=== PATIENT | male | born 1955 | race Caucasian/White ===

== ENCOUNTER 2017-08-14 16:11 | Inpatient (IN) | payer OTHER, MEDICAID ==
[~2017-08-14] VITALS: Ht 170.2 cm; Wt 74.0 kg
--- NOTE | 2017-08-14 16:30 | NUR ---
PT WAS BROUGHT IN TO ED BY CAREGIVER W/CC OF FEVER AND COUGH. PT'S CAREGIVER STS PT IS NONVERBAL BUT HAS APPEARED SOB AND UNCOMFORTABLE TODAY. WHEN ASKED IF HE FEELS PAIN, PT POINTS TO EPIGASTRIC REGION OF ABD. NO ABD DISTENTION NOTED. LUNG BELLO CLEAR UPON AUSCULTATION. COMFORT MEASURES IMPLEMENTED. CALL LIGHT W/IN REACH. PT AWAITING MSE. WILL CONTINUE TO MONITOR.
--- NOTE | 2017-08-14 16:50 | NUR ---
DR. HUDSON AT BEDSIDE FOR MSE.
[2017-08-14 17:22] LABS: CARBON DIOXIDE 25.2 mmol/L (21-32); CREATININE SERUM 1.4 mg/dL (0.7-1.3); POTASSIUM SERUM 4.1 mmol/L (3.5-5.1)
--- NOTE | 2017-08-14 17:22 | NUR ---
MEDICATED ORDERED. PLEASE SEE EMR.
[2017-08-14 17:41] LABS: PLATELET COUNT 194 x10^3mcL (130-400)
[2017-08-14 17:49] LABS: ALBUMIN 3.8 g/dL (3.4-5.0); BILIRUBIN TOTAL 0.8 mg/dL (0.20-1.00); TOTAL PROTEIN, SERUM 7.9 g/dL (6.4-8.2)
[2017-08-14 17:51] LABS: BASOPHIL % 0 % (0-2); RED CELL DISTRIBUTION WIDTH 15.7 % (11.5-14.5)
--- NOTE | 2017-08-14 17:55 | NUR ---
BREATHING TX IN PROGRESS.
[2017-08-14] MEDS ORDERED: MASON NATURAL1000 IU (18:29)
[2017-08-14] MEDS ORDERED: PHOSLO667 MG (18:29)
[2017-08-14] MEDS ORDERED: METROCREAM0.75% (18:30)
[2017-08-14] MEDS ORDERED: COLACE100 MG (18:30)
[2017-08-14] MEDS ORDERED: THE MEDICINE S300 MG (18:30)
--- NOTE | 2017-08-14 18:31 | NUR ---
URINAL AT BEDSIDE. PT UNABLE TO URINATE AT THIS TIME. AWARE OF URINE SPECIMEN NEED. STORE WAREHOUSE ASSOCIATE AT BEDSIDE.
[2017-08-14 18:36] LABS: rbc morphology (normal/abnorm) ABNORMAL (NORMAL)
--- NOTE | 2017-08-14 18:44 | NUR ---
REPORT GIVEN TO LARRY HANNAH FOR CONTINUATION OF CARE PRIMARY RN.
--- NOTE | 2017-08-14 18:48 | NUR ---
PT TRANSFERED VIA GURNEY ACCOMPANIED BY NURSE AND EMT. HAND WEAVER ATTACHED. VSS. RESPS E/U. NO S/S OF DISTRESS NOTED.
--- NOTE | 2017-08-14 19:00 | NUR ---
RECEIVED PT FROM ED [facility]IA [facility], CAME IN DUE TO FEVER AND SHAKINESS. PT IS ALERT, AWAKE AND ORIENTED TO PERSON ONLY. ABLE TO FOLLOW SIMPLE COMMANDS. TACHYPNEA NOTED, LUNG SOUNDS CTA. W/ NON-PRODUCTIVE COUGH. DENIES CHEST PAIN/PRESSURE, HR AT 103 ON THE MONITOR, SINUS TACHYCARDIA W/ OCC. PVC'S. C/O ABDOMINAL PAIN, PT IS UNABLE TO GIVE PAIN SCALE AND DESCRIPTION OF THE PAIN. W/ PIN-POINT REDNESS ON BUE. IV SITE PATENT AND INTACT. SZHF=114.5, COOLING MEASURES INITIATED. SIDE RAILS UPX2. CALL LIGHT ON REACH. HOB ELEVATED AT 30 DEG. BED ALARM ON. CAREGIVER AT BEDSIDE. ENDORSED TO PRIMARY NURSE JAZMÍN.
[2017-08-14 19:07] LABS: MAGNESIUM 2.2 mg/dL (1.8-2.4); PHOSPHOROUS 2.9 mg/dL (2.5-4.9)
[2017-08-14 19:10] VITALS: BP 98/63
[2017-08-14 19:14] VITALS: Ht 170.2 cm; Wt 74.0 kg
[2017-08-14 19:18] LABS: T3 TOTAL 0.81 ng/mL
[2017-08-14 19:19] LABS: FREE T4 0.87 ng/dL (0.76-1.46); FREE THYROXINE INDEX 2.2 ug/dL (1.4-4.5); T4(THYROXINE) 6.8 ug/dL (4.7-13.3)
[2017-08-14 20:58] VITALS: BP 95/52
--- NOTE | 2017-08-14 21:10 | NUR ---
IN BED, A/O X1, ABLE TO FOLLOW SOME COMMANDS. RESP. EVEN AND UNLABORED. ON ROOM AIR , NO DISTRESS NOTED. ON TELE #18, MONITOR SHOWS SR WITH OCCA. PVCS, NO EVIDENCE OF ANY DISCOMFORT NOTED. STARTED ON IVF, NS AT 100ML/HR, INFUSING VIA LAC, SITE CLEAR. KEPT COMFORTABLE. ABLE TO MOVE ALL EXTS. CALL LIGHT WITHIN REACH. WILL CONTINUE TO MONITOR.
--- NOTE | 2017-08-14 21:15 | NUR ---
TEMP. RECHECK SHOWS 98.0.NO EVIDENCE OF ANY DISCOMFORT NOTED AT THIS TIME.
[2017-08-14 21:45] VITALS: BP 95/52
[2017-08-14 23:59] LABS: RED BLOOD CELLS 5.73 M/mm3 (4.52-5.90)
[2017-08-15 00:12] LABS: TOTAL IRON BINDING CAPACITY 263 ug/dL (250-450)
[2017-08-15 00:18] LABS: CHOLESTEROL/HDL RATIO 4.1; IRON 11 ug/dL (65-170)
--- NOTE | 2017-08-15 00:48 | NUR ---
CALM AT THIS TIME. NO COMPLAINTS NOTED. WILL CONTINUE TO MONITOR.
[2017-08-15 04:50] VITALS: BP 104/60
[2017-08-15 06:17] LABS: CALCIUM 8.6 mg/dL (8.5-10.1); CARBON DIOXIDE 23.1 mmol/L (21-32); CHLORIDE SERUM 105 mmol/L (98-107); CREATININE SERUM 1.1 mg/dL (0.7-1.3); GFR1 > 60 mL/min; GLUCOSE SERUM 161 mg/dL (74-106); POTASSIUM SERUM 3.9 mmol/L (3.5-5.1); SODIUM SERUM 139 mmol/L (136-145)
[2017-08-15 06:19] LABS: PLATELET COUNT 180 x10^3mcL (130-400)
[2017-08-15 06:26] LABS: BASOPHIL % 0 % (0-2)
--- NOTE | 2017-08-15 06:34 | NUR ---
IV SITE LEAKING, DISCONT. NEW IV SITE RESTARTED ON LFA WITH #22G ANGIO.IVF INFUSING WELL AT THIS TIME. DUE MEDS GIVEN ORDERED, ISAAC. WELL. AFEBRILE AND VITAL SIGNS STABLE. RESP. EVEN AND UNLABORED. [address] VIA OXYMIZER, ISAAC. WELL. NO DISTRESS NOTED. WILL ENDORSE TO INCOMING NURSE.
[2017-08-15 07:12] LABS: UA SPECIFIC GRAVITY 1.025 (1.005-1.035); microscopic required? YES; urine erythrocyte 1+ (NEGATIVE)
--- NOTE | 2017-08-15 07:30 | NUR ---
RECEIVED PATIENT IN BED, AWAKE ALERT ORIENTED X 1. O2 ON VIA OXYMIZER AT 6L. NO ACUTE DISTRESS NOTED. OCCAS NON PRODUCTIVE COUGH NOTED. IVF INFUSING WELL TO LEFT F/A. SITE PATENT. SCATTERED PIN POINT REDMESS NOTED KELLY HARVEY. AMBULATORY WITH ASSIST. NO ACUTE DISTRESS NOTED. WILL CONTINUE TO MONITOR. TELE 18 NSR.
--- NOTE | 2017-08-15 08:00 | NUR ---
DR THOMPSON AND MEDICAL TEAM INTO SEE PATIENT AND DISCUSS PLAN OF CARE.
[2017-08-15 09:16] LABS: AMPHETAMINE QUAL UR NONE DETECTED (NEG <=1000)
[2017-08-15 10:23] VITALS: BP 106/62
--- NOTE | 2017-08-15 10:30 | NUR ---
DR MOORE NOTIFED BY ZAIDA JUAREZ OF PATIENT'S LACTIC ACID OF 3.2.
[2017-08-15 13:38] VITALS: BP 119/70
--- NOTE | 2017-08-15 14:12 | NUR ---
DR. MOORE IS PAGEGATED TO MADE AWARE THAT REPEAT LACTIC ACID=3.2. PRIMARY NURSE JATINDER MADE AWARE.
--- NOTE | 2017-08-15 16:43 | NUR ---
I HAVE REVIEWED THE DATA COLLECTION BY DEDE (NAME): JATINDER DAVIS ENTERED ON (DATE/TIME): 08/15/17 I CONCUR WITH THE DATA AND ANY EXCEPTIONS OR COMMENTS ARE LISTED BELOW:
--- NOTE | 2017-08-15 17:09 | NUR ---
RECEIVED LAB RESULTS OF MRSA + NARES. DR GARCIA NOTIFIED.
[2017-08-15 18:02] VITALS: BP 119/71
--- NOTE | 2017-08-15 18:14 | NUR ---
PATIENT TO BE MOVED TO ROOM 248A FOR ISOLATION D/T + MRSA NARES, AND WILL BE CLOSER TO NURSES STATION. IVF INFUSING WELL . PATIENT TOLERATED PUREE DIET WELL, FEEDER. NO ACUTE DISTRESS NOTED . WILL CONTINUE TO MONITOR.
--- NOTE | 2017-08-15 20:29 | NUR ---
PT O2 SAT 90%, NO RESPIRATORY DISTRESS NOTED. RT NOTIFIED. WILL CONTINUE TO MONITOR.
--- NOTE | 2017-08-15 20:34 | NUR ---
PT CURRENTLY RESTING IN BED, NO ACUTE DISTRESS. A/O X1, HX OF MR, COGNITIVE IMPAIRMENT, IMPULSE CONTROL DISORDER. TELE #18 SHOWING SINUS TACHYCARDIA, DENIES CHEST PAIN. PULSE PALPABLE IN ALL EXTREMITIES, NO EDEMA NOTED. LUNG SOUNDS DIMINISHED IN BILATERAL BASES, NO RESPIRATORY DISTRESS NOTED, O2 SAT 90%, RT NOTIFIED. BOWEL SOUNDS ACTIVE, LAST BM 08/15/17. INCONTINENT. GENERALIZED WEAKNESS. PINPOINT REDNESS BUE, PURCHASING OFFICER. IV PATENT AND INTACT. BED IN LOWEST POSITION, SIDE RAILS UP X2, CALL LIGHT WITHIN REACH. WILL CONTINUE TO MONITOR.
[2017-08-15 20:59] VITALS: BP 105/68
--- NOTE | 2017-08-16 01:39 | NUR ---
PT CURRENTLY RESTING IN BED, NO ACUTE DISTRESS. WILL CONTINUE TO MONITOR.
[2017-08-16 05:17] VITALS: BP 131/83
--- NOTE | 2017-08-16 05:41 | NUR ---
PT SLEPT PERIODICALLY THROUGHOUT NIGHT, NO ACUTE DISTRESS. ALL NEEDS MET AND ATTENDED TO. NO SIGNIFICANT CHANGES. IV PATENT AND INTACT. MEDICATED PAIN PER EMAR. BED IN LOWEST POSITION, SIDE RAILS UP X2, CALL LIGHT WITHIN REACH. WILL ENDORSE CARE TO ONCOMING NURSE.
[2017-08-16 06:23] LABS: CALCIUM 8.1 mg/dL (8.5-10.1); CARBON DIOXIDE 24.8 mmol/L (21-32); CHLORIDE SERUM 111 mmol/L (98-107); GFR1 > 60 mL/min; GLUCOSE SERUM 104 mg/dL (74-106); MAGNESIUM 2.2 mg/dL (1.8-2.4); PHOSPHOROUS 2.9 mg/dL (2.5-4.9); POTASSIUM SERUM 3.8 mmol/L (3.5-5.1); SODIUM SERUM 144 mmol/L (136-145)
[2017-08-16 06:26] LABS: PLATELET COUNT 212 x10^3mcL (130-400)
[2017-08-16 06:41] LABS: BASOPHIL % 0 % (0-2); RED CELL DISTRIBUTION WIDTH 16.1 % (11.5-14.5)
--- NOTE | 2017-08-16 07:30 | NUR ---
RECEIVED PATIENT IN BED IN ISOLATION FOR + MRSA NARES. ALERT AND ORIENTED X 1. SPEECH IS SLOW AND SLURRED. CALM AND COOPERATIVE AT THIS TIME. IVF INFUSING WELL, SITE PATENT LT F/A. TELE [address] WITH PVC'S/PAC'S, HR 120'S. O2 ON AT 9L VIA OXYMIZER. OCCAS MOIST COUGH NOTED, NON PRODUCTIVE. LUNGS DIMINISHED, RESP EVEN AND UNLABORED. INCONT OF LOOSE STOOL AND OF URINE. SKIN INTACT. WILL CONTINUE TO MONITOR AND TREAT MRSA ORDERED.
--- NOTE | 2017-08-16 08:00 | NUR ---
DR POZO AND MEDICAL TEAM INTO SEE PATIENT AND DISCUSS THE PLAN OF CARE.
[2017-08-16 09:25] VITALS: BP 125/72
--- NOTE | 2017-08-16 11:07 | NUR ---
PATIENT'S PLAN OF CARE WAS DISCUSSED AND REVIEWED WITH HAND SAMPLE MAKER:JATINDER DAVIS. I HAVE REVIEWED THE DATA COLLECTION BY HAND SAMPLE MAKER (NAME):JATINDER DAVIS. ENTERED ON (DATE/TIME):08/16/17. I CONCUR WITH THE DATA AND ANY EXCEPTIONS OR COMMENTS ARE LISTED BELOW:
[2017-08-16 14:00] VITALS: BP 99/59
--- NOTE | 2017-08-16 14:10 | NUR ---
TITRATED PT TO 7LM FROM 8LM OXYMIZER. SPO2 94%. WILL MONITOR.
--- NOTE | 2017-08-16 16:20 | NUR ---
PATIENT NOTED ON TELE TO HAVE BIGEMINYS. DR MOORE NOTIFIED.
[2017-08-16 18:23] VITALS: BP 96/61
--- NOTE | 2017-08-16 18:42 | NUR ---
PATIENT REMAINS ON 8L OXYMIZER, WITH SAT OF 94-96% AT THIS TIME. NEW ORDERS FOR ABG AND EKG RECEIVED. IVF INFUSING WELL . FERRLECIT STARTED BY CHINYERE JUAREZ ORDERED. MRSA TX STARTED ORDERED. R.T. PROTOCOL IN PLACE. [facility].
[2017-08-16 20:59] VITALS: BP 100/68
--- NOTE | 2017-08-16 22:33 | NUR ---
PT'S IN BED WITH EYES CLOSED , TELE NSR PIV INTACT INFUSING WELL .
--- NOTE | 2017-08-17 00:31 | NUR ---
PT'S IN BED WITH EYES CLOSED , NO RESP DISTRESS NOTED, ON OXYMIZER 8L . PIV INTACT INFUSING WELL , TELE NSR HR 99.
--- NOTE | 2017-08-17 01:32 | NUR ---
I HAVE REVIEWED THE DATA COLLECTION BY DEDE (NAME):MINOR ENTERED ON (DATE/TIME):08/17/17 3851 I CONCUR WITH THE DATA AND ANY EXCEPTIONS OR COMMENTS ARE LISTED BELOW:
--- NOTE | 2017-08-17 03:50 | NUR ---
PT;S IN BED WITH EYES CLOSED , TELE NRS , PIV INTACT INFUSING WEL.
[2017-08-17 05:50] VITALS: BP 115/82
--- NOTE | 2017-08-17 06:29 | NUR ---
NO CHANGES OF CONDITION NOTED , ALL DUE MEDS GIVEN NO REACTION NOTED,, KEPT PT CLEAN AT ALL THE TIME , TEL;E NSR , PIV INTACT INFUING WELL
[2017-08-17 07:10] LABS: BASOPHIL % 0.7 % (0-2); PLATELET COUNT 232 x10^3mcL (130-400)
[2017-08-17 07:22] LABS: CALCIUM 8.2 mg/dL (8.5-10.1); CARBON DIOXIDE 25.8 mmol/L (21-32); CHLORIDE SERUM 108 mmol/L (98-107); CREATININE SERUM 0.9 mg/dL (0.7-1.3); GFR1 > 60 mL/min; GLUCOSE SERUM 96 mg/dL (74-106); MAGNESIUM 2.2 mg/dL (1.8-2.4); POTASSIUM SERUM 3.6 mmol/L (3.5-5.1); SODIUM SERUM 141 mmol/L (136-145)
[2017-08-17 07:42] LABS: RED CELL DISTRIBUTION WIDTH 15.6 % (11.5-14.5)
--- NOTE | 2017-08-17 07:42 | NUR ---
RECEIVED PT LAYING IN BED AWAKE AND ALERT. ABLE TO RESPOND TO GREETING. OXYMIZER AT 8L. IV TO LFA APPEARS PATENT AND INFUSING WELL. NO APPARENT SIGNS OF ACUTE DISTRESS NOTED. CALL LIGHT WITHIN REACH. ATTEMPTED TO EDUCATE ON THE USAGE, WILL CONTINUE TO MONITOR. BED IN LOWEST POSITION.
--- NOTE | 2017-08-17 08:30 | NUR ---
AM ROUNDS DONE. PER DR. KELLY, PT MIGHT POSSIBLY DISCHARGE DEPENDING ON PLAN OF MOTHER. PT IS ONLY ALERT AND ORIENTED x1-2, PT PLAN OF CARE WILL BE DISCUSSED WITH MOTHER WHEN SHE ARRIVES. BED IN LOWEST POSITION. WILL CONTINUE TO MONITOR
[2017-08-17 09:52] VITALS: BP 122/78
--- NOTE | 2017-08-17 10:15 | NUR ---
PT WAS PROVIDED PERICARE AND LINENS WERE CHANGED. PT COOPERATIVE AND TOLERATED WELL. MOTHER AT BEDSIDE. CURRENTLY AT 6L OXYMIZER SATing AT 97%. NO APPARENT SIGNS OF ACUTE. CALL LIGHT WITHIN REACH. BED IN LOWEST POSITION. WILL CONTINUE TO MONITOR
[2017-08-17 13:39] VITALS: BP 128/80
--- NOTE | 2017-08-17 13:50 | NUR ---
PT SPO2 98% ON 6LM VIA OXYMIZER. TITRATED PT LITER FLOW TO 5LM, SPO2 STABLE AT 60%. RN NOTIFIED. WILL MONITOR.
--- NOTE | 2017-08-17 15:02 | NUR ---
PT RESTING IN BED. NO APPARENT SIGNS OF ACUTE DISTRESS. PLEASANT AND COOPERATIVE. MOTHER AT BEDSIDE. DR. WATT HAD DISCUSSED THE PLAN OF CARE WITH HER. CALL LIGHT WITHIN REACH. BED IN LOWEST POSITION. WILL CONTINUE TO MONITOR
--- NOTE | 2017-08-17 16:00 | NUR ---
SPO2 100%. O2 TITRATED DOWN TO 4LM, PT TOLERATING WELL WITH SPO2 100%. RN NOTIFIED. WILL MONITOR.
--- NOTE | 2017-08-17 16:30 | NUR ---
PT SPO2 STABLE AT 100%. TITRATED LITER FLOW TO 3LM VIA OXYMIZER. SPO2 MAINTAINING AT 100%. NO DISTRESS AT THIS TIME. RN NOTIFIED. WILL MONITOR.
[2017-08-17 17:13] VITALS: BP 124/73
[2017-08-17 18:14] VITALS: BP 124/73
--- NOTE | 2017-08-17 20:00 | NUR ---
PT A/A/O X1, SLOW TO ANSWER WHEN ASKED A QUESTION. DENIES DIZZINESS AND HEADACHE. BREATH SOUNDS DIMINISHED KEY BASES. BREATHING EVEN AND UNLABORED ON 3L OXYMIZER. DENIES CHEST PAIN AND PRESSURE. BOWEL SOUNDS ACTIVE. NO C/O N/V AND ABD PAIN. SCATTERED RED PIN POINT RASH NOTED ON BUE. IV INTACT ON THE LEFT FOREARM INFUSING WITH NS AT 20 ML/HR. MADE PT COMFORTABLE. PLACED CALL LIGHT WITH IN REACH. WILL CONTINUE TO MONITOR.
[2017-08-17 21:13] VITALS: BP 136/84
--- NOTE | 2017-08-18 00:56 | NUR ---
PT RESTING WITH EYES CLOSED. NO DISTRESS AND DISCOMFORT NOTED. WILL CONTINUE TO MONITOR.
--- NOTE | 2017-08-18 05:14 | NUR ---
PT QUIET AND RESTING. NO SIGNIFICANT CHANGES NOTED. IV INTACT AND INFUSING ORDERED. MADE PT COMFORTABLE. WILL ENDORSE TO THE AM NURSE ACCORDINGLY.
[2017-08-18 06:12] VITALS: BP 119/77
[2017-08-18 06:38] LABS: BASOPHIL % 0.4 % (0-2); PLATELET COUNT 269 x10^3mcL (130-400)
[2017-08-18 07:06] LABS: RED CELL DISTRIBUTION WIDTH 15.5 % (11.5-14.5)
--- NOTE | 2017-08-18 07:15 | NUR ---
PT IN BED. NO DISTRESS NOTED. ON OXYMIZER 3LNC. RESPONDS TO COMMANDS. IV INFUSING WELL TO LFA #22. BED IN LOWEST POSITION, BED ALARM ON. CALL LIGHT WITHIN REACH.
[2017-08-18 08:42] VITALS: BP 127/77
--- NOTE | 2017-08-18 12:30 | NUR ---
PASSED NOON MEDS. PT TOLERATED WELL. PT TOLERATING LUNCH MEAL WELL. NO DISTRESS. CALL LIGHT WITHIN REACH.
--- NOTE | 2017-08-18 16:15 | NUR ---
PROVIDED HYGIENE CARE. PT TOLERATED PROCEDURE WELL. CALL LIGHT WITHIN REACH.
[2017-08-18 16:39] VITALS: BP 108/75
--- NOTE | 2017-08-18 16:45 | NUR ---
PASSED AFTERNOON MEDS. PT TOLERATED WELL. NO DISTRESS NOTED. ON ROOM AIR. PT IN FOWLERS POSITION. IV INFUSING WELL TO LFA #22. BED IN LOWEST POSITION, CALL LIGHT WITHIN REACH.
--- NOTE | 2017-08-18 20:00 | NUR ---
PT A/A/O X1. DENIES DIZZINESS AND HEADACHE. BREATH SOUNDS DIMINISHED KEY BASES. BREATHING EVEN AND UNLABORED ON ROOM AIR. NON PRODUCTIVE COUGH NOTED, SPO2 93% ON 2L NC. DENIES CHEST PAIN AND PRESSURE. BOWEL SOUNDS ACTIVE. NO C/O N/V AND ABD PAIN. IV INTACT ON THE LFA INFUSING WITH NS AT 20 ML/HR. MADE PT COMFORTABLE. PLACED CALL LIGHT WITH IN REACH. BED ALARM TURNED ON. WILL CONTINUE TO [facility].
[2017-08-18 21:42] VITALS: BP 121/85
--- NOTE | 2017-08-19 00:21 | NUR ---
PT RESTING WITH EYES CLOSED. ON ROOM AIR WITH SPO2 92%. NO DISTRESS AND DISCOMFORT NOTED. WILL CONTINUE TO MONITOR.
[2017-08-19 05:24] VITALS: BP 115/83
--- NOTE | 2017-08-19 05:30 | NUR ---
PT QUIET AND RESTING. NO SIGNIFICANT CHANGES NOTED THUS FAR. PT SUSTAINING SPO2 92% ON ROOM AIR. IV INTACT AND INFUSING ORDERED. MADE PT COMFORTABLE. WILL ENDORSE TO THE AM NURSE ACCORDINGLY.
--- NOTE | 2017-08-19 07:39 | NUR ---
RECEIVED PT FROM NIGHT NURSE IN NO ACUTE DISTRESS. RESPIRATIONS EVEN AND UNLABORED ON RA. AAOX1, PT HAS HX OF MR. CONTACT ISO IN PLACE. IVF INFUSING AT BEDSIDE. PT IS M/S. BED IN LOWEST POSITION. CALL LIGHT WITHIN REACH. WILL CONTINUE TO MONITOR.
[2017-08-19 08:53] VITALS: BP 135/86
[2017-08-19] MEDS ORDERED: LEVAQUIN750 MG PO (10:15)
[2017-08-19] MEDS ORDERED: LAC PO (10:17)
[2017-08-19] MEDS ORDERED: CLEOCIN HCL300 MG PO (10:17)
[2017-08-19] MEDS ORDERED: HIBICLENS118 ML TOP (10:20)
[2017-08-19] MEDS ORDERED: BACO TOP (10:20)
[2017-08-19 10:25] VITALS: BP 135/86
[2017-08-19 12:34] VITALS: BP 121/75
--- NOTE | 2017-08-19 12:42 | NUR ---
PT SITTING UP IN BED EATING IN NO ACUTE DISTRESS. RESPIRATIONS EVEN AND UNLABORED ON RA. CONTACT PRECAUTIONS IN PLACE. BED IN LOWEST POSITION. CALL LIGHT WITHIN REACH. WILL CONTINUE TO MONITOR.
[2017-08-19 17:10] VITALS: BP 109/72
--- NOTE | 2017-08-19 18:51 | NUR ---
PT RESTING IN BED IN NO ACUTE DISTRESS. RESPIRATIONS EVEN AND UNLABORED ON 2L VIA NC. AWAKE, UNABLE TO ASSESS ORIENTATION. IVF INFUSING AT BEDSIDE. CONTACT PRECAUTIONS IN PLACE. BED IN LOWEST POSITION. CALL LIGHT WITHIN REACH. WILL ENDORSE TO ONCOMING SHIFT.
--- NOTE | 2017-08-19 20:18 | NUR ---
PT CURRENTLY RESTING IN BED, NO ACUTE DISTRESS. A/O X1, HX OF MODERATE MR, MILD COGNITIVE IMPAIRMENT, IMPULSE CONTROL DISORDER. NO TELE, MED/SURG. DENIES CHEST PAIN. PULSES PALPABLE IN ALL EXTREMITIES, NO EDEMA NOTED. LUNG SOUNDS DIMINISHED BILATERAL BASES, NO RESPIRATORY DISTRESS NOTED. BOWEL SOUNDS ACTIVE, LAST BM 08/17/17. INCONTINENT. GENERALIZED WEAKNESS. SKIN INTACT. DENIES PAIN AT THIS TIME. IV PATENT AND INTACT. BED IN LOWEST POSITION, SIDE RAILS UP X2, CALL LIGHT WITHIN REACH. WILL CONTINUE TO MONITOR.
[2017-08-19 21:18] VITALS: BP 108/69
[2017-08-20 05:54] VITALS: BP 112/78
--- NOTE | 2017-08-20 07:30 | NUR ---
RECEIVED PT FROM NIGHT NURSE IN NO ACUTE DISTRESS. RESPIRATIONS EVEN AND UNLABORED ON RA. PT ASLEEP IN BED. IVF INFUSING AT BEDSIDE. CONTACT PRECAUTIONS IN PLACE. BED IN LOWEST POSITION. CALL LIGHT WITHIN REACH. WILL CONTINUE TO MONITOR.
[2017-08-20 11:09] VITALS: BP 134/68
--- NOTE | 2017-08-20 12:20 | NUR ---
PT SITTING UP IN CHAIR AT BEDSIDE IN NO ACUTE DISTRESS. RESPIRATIONS EVEN AND UNLABORED ON RA. IVF INFUSING AT BEDSIDE. CALL LIGHT WITHIN REACH. WILL CONTINUE TO MONITOR.
--- NOTE | 2017-08-20 13:08 | NUR ---
PHYSICAL THERAPY DAILY NOTES CO-SIGN All documentation done by the Entry Level Account Representative for 08/20/17 has been reviewed. I agree with the documentation. Reviewed/Co-Signed by: Arleen Lantigua PT Documentation Done by: RONAN STEWART INSULATION APPLICATOR PT PROGESSING STEDAILY, CAREGIVER AT BEDSIDE, ABLE TO FOLLOW COMMANDS.
[2017-08-20] MEDS ORDERED: CODEINE/GUAIFE120 M1 PO (16:16)
--- NOTE | 2017-08-20 16:25 | NUR ---
PT D/C TO [facility] IN NO ACUTE DISTRESS. RESPIRATIONS EVEN AND UNLABORED ON RA. UNABLE TO ASSESS ORIENTATION DUE TO HX OF MR. D/C INSTRUCTIONS GIVEN TO CAREGIVER INDRY, GIVEN NEW PRESCRIPTIONS, GIVEN FOLLOW UP APPT. IV D/C INTACT. PT WAS MED/SURG. PT ESCORTED TO LOBBY VIA WHEELCHAIR BY YA JUAREZ.
== END 2017-08-20 16:33 | disposition home health service (06) | DRG 177 ==
LOC: ED 16:11 → DU 18:11 → MU 18:11 → DU 18:50 → MU 08-18 06:27
PROVIDERS: Emergency Medicine; Family Medicine; ADMIT Family Medicine
DX: J69.0 Pneumonitis due to inhalation of food and vomit (principal); N17.0 Acute kidney failure with tubular necrosis; R65.11 Systemic inflammatory response syndrome (SIRS) of non-infectious origin with acute organ dysfunction; J96.00 Acute respiratory failure, unspecified whether with hypoxia or hypercapnia; E44.0 Moderate protein-calorie malnutrition; K56.7 Ileus, unspecified; K21.9 Gastro-esophageal reflux disease without esophagitis; E86.0 Dehydration; E83.51 Hypocalcemia; F71 Moderate intellectual disabilities; E87.8 Other disorders of electrolyte and fluid balance, not elsewhere classified; D56.3 Thalassemia minor; K76.0 Fatty (change of) liver, not elsewhere classified; R31.9 Hematuria, unspecified; N28.1 Cyst of kidney, acquired; E66.3 Overweight; Z68.25 Body mass index [BMI] 25.0-25.9, adult
CPT/HCPCS: 36600; 83880; 84439; 87804; 97110-GP; 97116-GP; 97530-GP; J1956; J2916; J2930; J3490; J7030; J7613; J7620; J7644; Q0092

== ENCOUNTER → 2017-11-05 | Outpatient (CLI) | payer OTHER, MEDICAID ==
[~2017-11-05] MED LIST: BACO TOP; CLEOCIN HCL300 MG PO; CODEINE/GUAIFE120 M1 PO; COLACE100 MG; HIBICLENS118 ML TOP; LAC PO; LEVAQUIN750 MG PO; MASON NATURAL1000 IU; METROCREAM0.75%; PHOSLO667 MG; THE MEDICINE S300 MG
== END | disposition home or self-care (01) ==
LOC: RD 12:10
DX: Z01.810 Encounter for preprocedural cardiovascular examination (principal)

== ENCOUNTER → 2019-10-25 | Outpatient (CLI) | payer OTHER, MEDICAID | END | disposition home or self-care (01) | LOC: RD 15:15 | DX: S90.122A Contusion of left lesser toe(s) without damage to nail, initial encounter (principal); X58.XXXA Exposure to other specified factors, initial encounter; Y92.9 Unspecified place or not applicable ==